=== PATIENT | male | born 1975 | race Two or more races ===

== ENCOUNTER 2021-01-25 18:29 | Emergency (ER) | payer OTHER ==
[~2021-01-25] VITALS: Ht 160 cm; Wt 72.6 kg
[2021-01-25 22:09] VITALS: BP 111/75
== END 2021-01-25 23:09 | disposition home or self-care (01) ==
LOC: EDBD 18:29 → ER 18:33
DX: S32.050A Wedge compression fracture of fifth lumbar vertebra, initial encounter for closed fracture (principal); V43.62XA Car passenger injured in collision with other type car in traffic accident, initial encounter; Y93.89 Activity, other specified; Y92.410 Unspecified street and highway as the place of occurrence of the external cause; Y99.8 Other external cause status
CPT/HCPCS: 72100